=== PATIENT | female | born 1970 | race Caucasian/White ===

== ENCOUNTER 2020-11-04 17:43 | Inpatient (IN) | payer OTHER ==
[~2020-11-04] VITALS: Ht 167.6 cm; Wt 78.5 kg
[2020-11-04 23:32] LABS: HEMOGLOBIN 11.1 gm/dl (12.3-15.3); RED BLOOD COUNT 4.03 M/UL (4.00-5.10); WHITE BLOOD COUNT 6.3 K/UL (4.5-11.0)
[2020-11-05 07:22] LABS: HEMOGLOBIN 8.8 gm/dl (12.3-15.3); RED BLOOD COUNT 3.14 M/UL (4.00-5.10); WHITE BLOOD COUNT 4.3 K/UL (4.5-11.0)
[2020-11-05] MEDS ORDERED: NORCO 7.5-3251 EACH PO (13:22)
[2020-11-05] MEDS ORDERED: MAGIC MOUTHWASH PO (13:23)
[2020-11-05] MEDS ORDERED: PHENERGAN 25 MG25 M1 PO (13:23)
[2020-11-05] MEDS ORDERED: PROTONIX40 MG PO (13:23)
[2020-11-05] MEDS ORDERED: ONDANSETRON HCL8 MG PO (13:24)
--- NOTE | 2020-11-05 17:19 | NUR ---
SWAB OBTAINED FOR COVID AND SENT TO LAB
[2020-11-06 02:36] LABS: HEMOGLOBIN 7.4 gm/dl (12.3-15.3)
[2020-11-06 02:57] LABS: RED BLOOD COUNT 2.59 M/UL (4.00-5.10); WHITE BLOOD COUNT 2.5 K/UL (4.5-11.0)
[2020-11-07 04:15] LABS: RED BLOOD COUNT 2.8 M/UL (4.00-5.10)
[2020-11-07 04:28] LABS: WHITE BLOOD COUNT 3.2 K/UL (4.5-11.0)
[2020-11-08 03:03] LABS: HEMOGLOBIN 6.6 gm/dl (12.3-15.3); RED BLOOD COUNT 2.35 M/UL (4.00-5.10); WHITE BLOOD COUNT 2.1 K/UL (4.5-11.0)
[2020-11-08 15:11] LABS: HEMOGLOBIN 8.3 gm/dl (12.3-15.3)
[2020-11-09 03:46] LABS: HEMOGLOBIN 7.8 gm/dl (12.3-15.3); WHITE BLOOD COUNT 2.1 K/UL (4.5-11.0)
[2020-11-09 03:56] LABS: RED BLOOD COUNT 2.71 M/UL (4.00-5.10)
[2020-11-10 04:29] LABS: HEMOGLOBIN 7.8 gm/dl (12.3-15.3); RED BLOOD COUNT 2.68 M/UL (4.00-5.10)
[2020-11-10 04:35] LABS: WHITE BLOOD COUNT 6.6 K/UL (4.5-11.0)
[2020-11-11 04:07] LABS: RED BLOOD COUNT 2.4 M/UL (4.00-5.10); WHITE BLOOD COUNT 2.5 K/UL (4.5-11.0)
[2020-11-11 04:08] LABS: HEMOGLOBIN 6.8 gm/dl (12.3-15.3)
[2020-11-12 03:18] LABS: RED BLOOD COUNT 2.75 M/UL (4.00-5.10)
[2020-11-13 02:15] LABS: HEMOGLOBIN 7.8 gm/dl (12.3-15.3); RED BLOOD COUNT 2.8 M/UL (4.00-5.10)
[2020-11-13 02:28] LABS: WHITE BLOOD COUNT 1.5 K/UL (4.5-11.0)
[2020-11-14 03:21] LABS: HEMOGLOBIN 8.2 gm/dl (12.3-15.3); RED BLOOD COUNT 2.89 M/UL (4.00-5.10)
[2020-11-14 03:24] LABS: WHITE BLOOD COUNT 2.7 K/UL (4.5-11.0)
[2020-11-15 03:07] LABS: RED BLOOD COUNT 2.82 M/UL (4.00-5.10)
[2020-11-15 03:39] LABS: WHITE BLOOD COUNT 6.2 K/UL (4.5-11.0)
[2020-11-16 16:26] LABS: RED BLOOD COUNT 2.8 M/UL (4.00-5.10); WHITE BLOOD COUNT 6.9 K/UL (4.5-11.0)
[2020-11-17 05:58] LABS: HEMOGLOBIN 7.5 gm/dl (12.3-15.3); RED BLOOD COUNT 2.65 M/UL (4.00-5.10)
[2020-11-18 02:22] LABS: RED BLOOD COUNT 2.43 M/UL (4.00-5.10); WHITE BLOOD COUNT 4.6 K/UL (4.5-11.0)
[2020-11-18 02:32] LABS: HEMOGLOBIN 6.9 gm/dl (12.3-15.3)
[2020-11-19 03:50] LABS: HEMOGLOBIN 8.7 gm/dl (12.3-15.3)
[2020-11-19 03:52] LABS: RED BLOOD COUNT 3.13 M/UL (4.00-5.10)
[2020-11-19] MEDS ORDERED: MAGIC MOUTHWASH PO (09:42)
[2020-11-19] MEDS ORDERED: ONDANSETRON HCL8 MG PO (09:43)
[2020-11-19] MEDS ORDERED: REGLAN5 MG PO (09:43)
[2020-11-19] MEDS ORDERED: POTASSIUM20 MEQ/15 PO (09:50)
== END 2020-11-19 11:41 | disposition home or self-care (01) | DRG 682 ==
LOC: ER1 17:43 → CDU 11-05 01:03 → PROG CARE 11-05 01:03 → M/S 11-05 01:03 → PROG CARE 11-05 04:38 → M/S 11-16 18:18
PROVIDERS: Internal Medicine; Internal Medicine Nephrology; Physician Assistant; ADMIT Internal Medicine
PROC: 8E0ZXY6 Isolation (ICD-10-PCS; principal; 2020-11-05)
PROC: 0DH67UZ Insertion of Feeding Device into Stomach, Via Natural or Artificial Opening (ICD-10-PCS; 2020-11-07)
PROC: 3E0G76Z Introduction of Nutritional Substance into Upper GI, Via Natural or Artificial Opening (ICD-10-PCS; 2020-11-07)
PROC: 30233N1 Transfusion of Nonautologous Red Blood Cells into Peripheral Vein, Percutaneous Approach (ICD-10-PCS; 2020-11-08)
PROC: 30233N1 Transfusion of Nonautologous Red Blood Cells into Peripheral Vein, Percutaneous Approach (ICD-10-PCS; 2020-11-11)
PROC: 30233N1 Transfusion of Nonautologous Red Blood Cells into Peripheral Vein, Percutaneous Approach (ICD-10-PCS; 2020-11-18)
DX: N17.9 Acute kidney failure, unspecified (principal); U07.1 COVID-19; E43 Unspecified severe protein-calorie malnutrition; D61.810 Antineoplastic chemotherapy induced pancytopenia; D61.818 Other pancytopenia; E87.2 Acidosis; E87.0 Hyperosmolality and hypernatremia; E86.0 Dehydration; E87.6 Hypokalemia; C02.9 Malignant neoplasm of tongue, unspecified; D70.9 Neutropenia, unspecified; R50.81 Fever presenting with conditions classified elsewhere; Z79.899 Other long term (current) drug therapy; Z88.5 Allergy status to narcotic agent; Z87.891 Personal history of nicotine dependence; K11.7 Disturbances of salivary secretion; D69.6 Thrombocytopenia, unspecified; K12.30 Oral mucositis (ulcerative), unspecified; R63.4 Abnormal weight loss; T45.1X5A Adverse effect of antineoplastic and immunosuppressive drugs, initial encounter; R11.2 Nausea with vomiting, unspecified; R13.12 Dysphagia, oropharyngeal phase; D70.1 Agranulocytosis secondary to cancer chemotherapy
CPT/HCPCS: 36415; 36430; 71045; 74018; 80048; 80053; 81001; 82550; 82553; 82570; 82803; 83605; 83690; 83735; 84132; 84133; 84156; 84300; 85014; 85018; 85025; 86850; 86900; 86901; 86920; 87040; 87070; 87086; 87205; 89050; 92610; 93005; 96374; 99285; C9113; J0360; J0456; J0692; J1170; J1442; J1644; J2405; J2550; J2765; J3475; J3480; J7030; J7050; P9040; P9047; U0002; U0003

== ENCOUNTER 2020-11-28 12:41 | Inpatient (IN) | payer OTHER ==
[~2020-11-28] VITALS: Ht 167.6 cm; Wt 80.3 kg
[~2020-11-28 12:41] MED LIST: MAGIC MOUTHWASH PO; NORCO 7.5-3251 EACH PO; ONDANSETRON HCL8 MG PO; PHENERGAN 25 MG25 M1 PO; POTASSIUM20 MEQ/15 PO; PROTONIX40 MG PO; REGLAN5 MG PO
[2020-11-28 14:51] LABS: RED BLOOD COUNT 1.8 M/UL (4.00-5.10); WHITE BLOOD COUNT 2.7 K/UL (4.5-11.0)
[2020-11-28 14:53] LABS: HEMOGLOBIN 5.3 gm/dl (12.3-15.3)
[2020-11-28 15:18] LABS: BUN/CREATININE RATIO 13 (0-10)
[2020-11-28] MEDS ORDERED: POTASSIUM99 M1 PO (21:01)
[2020-11-29 04:06] LABS: RED BLOOD COUNT 1.64 M/UL (4.00-5.10); WHITE BLOOD COUNT 2.1 K/UL (4.5-11.0)
[2020-11-29 04:16] LABS: HEMOGLOBIN 4.7 gm/dl (12.3-15.3)
[2020-11-30 04:57] LABS: HEMOGLOBIN 8.9 gm/dl (12.3-15.3); RED BLOOD COUNT 2.97 M/UL (4.00-5.10); WHITE BLOOD COUNT 3.5 K/UL (4.5-11.0)
[2020-12-01] MEDS ORDERED: AMLODIPINE BESY10 MG PO (13:26)
--- NOTE | 2020-12-01 14:27 | NUR ---
REPORT CALLED TO KATIUSKA BAI AT [facility]. DISCHARGE SUMMARY WAS FAXED PER HER REQUEST.
== END 2020-12-01 15:51 | disposition home or self-care (01) | DRG 809 ==
LOC: ER1 12:41 → ZEROF 16:51 → MED SURG 4 16:51
PROVIDERS: Emergency Medicine; Physician Assistant Medical; ADMIT Internal Medicine
PROC: 30233N1 Transfusion of Nonautologous Red Blood Cells into Peripheral Vein, Percutaneous Approach (ICD-10-PCS; principal; 2020-11-29)
DX: D61.818 Other pancytopenia (principal); N17.9 Acute kidney failure, unspecified; B37.0 Candidal stomatitis; D64.9 Anemia, unspecified; Z86.16 Personal history of COVID-19; E87.6 Hypokalemia; N18.30 Chronic kidney disease, stage 3 unspecified; R53.81 Other malaise; I12.9 Hypertensive chronic kidney disease with stage 1 through stage 4 chronic kidney disease, or unspecified chronic kidney disease; Z85.810 Personal history of malignant neoplasm of tongue; Z88.5 Allergy status to narcotic agent; Z87.891 Personal history of nicotine dependence; Z88.8 Allergy status to other drugs, medicaments and biological substances; Z79.899 Other long term (current) drug therapy
CPT/HCPCS: 36415; 36430; 71045; 80048; 80053; 81001; 82550; 82553; 83010; 83735; 83874; 84484; 85025; 85045; 86850; 86870; 86880; 86900; 86901; 86902; 86905; 86920; 86922; 90471; 96374; 96375; 99285; C9113; J0360; J1940; J2405; J7030; P9040; U0002

== ENCOUNTER 2021-08-15 12:37 | Emergency (ER) | payer OTHER ==
[~2021-08-15 12:37] MED LIST changes: +AMLODIPINE BESY10 MG PO; +POTASSIUM99 M1 PO
[2021-08-15 13:46] LABS: HEMOGLOBIN 10.2 gm/dl (12.3-15.3); RED BLOOD COUNT 3.38 M/UL (4.00-5.10); WHITE BLOOD COUNT 21.8 K/UL (4.5-11.0)
== END 2021-08-15 17:00 | disposition home or self-care (01) ==
LOC: ER1 12:37
PROVIDERS: Emergency Medicine
DX: E83.52 Hypercalcemia (principal); D72.829 Elevated white blood cell count, unspecified
CPT/HCPCS: 71045; 80053; 81001; 83735; 85025; 87040; 93005; 96374; 99284; J3489